=== PATIENT | male | born 1975 | race Caucasian/White ===

== ENCOUNTER 2021-04-07 12:21 | Observation (INO) | payer BC, OTHER ==
[~2021-04-07] VITALS: Ht 180 cm; Wt 90.7 kg
[2021-04-07] MEDS: NITROGLYCERIN 0.4 MG SL TABS BTL 25'S SL PRN ×5 (12:43→23:20)
[2021-04-07] MEDS ORDERED: ASPIRIN 81 MG CHEW (CHILDREN'S ASA) PO ONE (12:45)
[2021-04-07 12:49] LABS: BASOPHILS % (AUTO) 0 % (0-10); EOSINOPHILS % (AUTO) 0 % (0-10); HEMATOCRIT 46 % (40-54); HEMOGLOBIN 15.7 g/dL (13.3-17.7); LYMPHOCYTES # (AUTO) 1.8 X 10^3 (1.0-4.0); LYMPHOCYTES % (AUTO) 25 % (12-44); MEAN CORPUSCULAR HEMOGLOBIN 30 pg (25-34); MEAN CORPUSCULAR HGB CONC 34 g/dL (32-36); MEAN CORPUSCULAR VOLUME 87 fL (80-99); MEAN PLATELET VOLUME 10.1 fL (9.0-12.2); MONOCYTES # (AUTO) 0.6 X 10^3 (0.0-1.0); MONOCYTES % (AUTO) 8 % (0-12); NEUTROPHILS # (AUTO) 4.9 X 10^3 (1.8-7.8); NEUTROPHILS % (AUTO) 67 % (42-75); PLATELET COUNT 188 10^3/uL (130-400); WHITE BLOOD COUNT 7.4 10^3/uL (4.3-11.0)
--- NOTE | 2021-04-07 12:55 | Diagnostic Imaging Report ---
INDICATION: Chest pain. COMPARISON: None. FINDINGS: Single view of the chest demonstrates clear lungs bilaterally. The heart is normal. There is no pneumothorax. Osseous structures are normal. IMPRESSION: Negative chest. Dictated by: Dictated on workstation # [id number]
[2021-04-07 12:59] LABS: ALBUMIN 4.3 GM/DL (3.2-4.5); CHLORIDE 106 MMOL/L (98-107); POTASSIUM 3.9 MMOL/L (3.6-5.0); SODIUM 140 MMOL/L (135-145)
[2021-04-07 13:00] LABS: PROTHROMBIN TIME PATIENT 13.8 SEC (12.2-14.7)
[2021-04-07 13:02] LABS: GLUCOSE 110 MG/DL (70-105)
[2021-04-07 13:03] LABS: CARBON DIOXIDE 21 MMOL/L (21-32)
[2021-04-07 13:04] LABS: BILIRUBIN,TOTAL 0.6 MG/DL (0.1-1.0)
[2021-04-07 13:05] LABS: ALKALINE PHOSPHATASE 67 U/L (40-136)
[2021-04-07 13:06] LABS: GFR ESTIMATED 66
[2021-04-07 13:07] LABS: BUN/CREATININE RATIO 11
[2021-04-07 13:08] LABS: ALANINE AMINOTRANSFERASE 14 U/L (0-55)
--- NOTE | 2021-04-07 13:11 | ED Chest Pain ---
General Chief Complaint: Chest Pain Stated Complaint: CHEST PAIN Nursing Triage Note: PT AMBULATORY TO ER, C/O L SIDED CHEST PAIN/HEAVINESS ONSET A WEEK AGO, WORSE THE PAST 2-3 DAYS, SENT OVER FROM CLINIC, ARRIVES WITH EKG. Source: patient Exam Limitations: no limitations History of Present Illness Date Seen by Provider: Apr 07, 2021 Time Seen by Provider: 12:23 Initial Comments This 45-year-old gentleman presents to the emergency room as referred by [facility] for reasons of chest pain and shortness of breath. He reports having intermittent episodes of chest pain and shortness of breath for a few weeks. Over the last 3 days it has been more consistent. The chest pain is fairly constant but the shortness of breath increases with activity such as taking stairs. He describes the discomfort as a heaviness in the left chest rated as 5 or 6 out of 10. He denies any known history of coronary artery disease. He is treated for hypertension and acid reflux. He denies any prior work-up for cardiopulmonary problems such as stress test or coronary angiography. He takes sucralfate, Protonix, baclofen, and lisinopril. His primary care provider is Dr. Vidal. He denies any tobacco or drug use. He rarely drinks alcohol. He has no family history of coronary artery disease in first-degree relatives. Allergies and Home Medications Allergies Coded Allergies: losartan (Verified Allergy, Severe, Anaphylaxis, 04/07/21) Lip and throat swelling Patient Home Medication List Home Medication List Reviewed: Yes Baclofen (Baclofen) 10 Mg Tablet, 10 MG PO DAILY, (Reported) Entered as Reported by: AJITH FLOWERS on 04/07/211649 Last Action: New Order Lisinopril (Lisinopril) 20 Mg Tablet, 20 MG PO DAILY, (Reported) Entered as Reported by: AJITH FLOWERS on 04/07/211649 Last Action: New Order Pantoprazole Sodium (Pantoprazole Sodium) 20 Mg Tablet.dr, 20 MG PO DAILY, (Reported) Entered as Reported by: AJITH FLOWERS on 04/07/211649 Last Action: New Order Sucralfate (Sucralfate) 1 Gm Tablet, 1 GM PO DAILY, (Reported) Entered as Reported by: AJITH FLOWERS on 04/07/211649 Last Action: New Order Review of Systems Review of Systems Constitutional: no symptoms reported EENTM: No Symptoms Reported Respiratory: See HPI Cardiovascular: See HPI Gastrointestinal: No Symptoms Reported Genitourinary: No Symptoms Reported Musculoskeletal: no symptoms reported Skin: no symptoms reported Psychiatric/Neurological: No Symptoms Reported Endocrine: No Symptoms Reported Hematologic/Lymphatic: No Symptoms Reported Past Dttgvja-Fudeih-Yescpk Hx Patient Social History Tobacco Use?: No Use of E-Cig and/or Vaping dev: No Substance use?: No Alcohol Use?: Yes Alcohol Frequency: Rarely Pt feels they are or have been: No Immunizations Up To Date First/Initial COVID19 Vaccinat: JULY 2020 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 oz. kg; 27.00 BMI Method: General Appearance: No Apparent Distress, WD/WN HEENT: PERRL/EOMI, Normal ENT Inspection Neck: Normal Inspection Respiratory: Chest Non Tender, Lungs Clear, Normal Breath Sounds, No Accessory Muscle Use, No Respiratory Distress Cardiovascular: Regular Rate, Rhythm, No Edema, No Murmur Gastrointestinal: Normal Bowel Sounds, Non Tender, Soft; No Distended Extremity: Normal Inspection, Non Tender, No Calf Tenderness, No Pedal Edema Neurologic/Psychiatric: Alert, Oriented x3, No Motor/Sensory Deficits, Normal Mood/Affect, air filler II-XII Norm as Tested Skin: Normal Color, Warm/Dry Progress/Results/Core Measures Results/Orders Lab Results Laboratory Tests Test 04/07/21 12:36 Range/Units White Blood Count 7.4 4.3-11.0 10^3/uL Red Blood Count 5.26 4.30-5.52 10^6/uL Hemoglobin 15.7 13.3-17.7 g/dL Hematocrit 46 40-54 % Mean Corpuscular Volume 87 80-99 fL Mean Corpuscular Hemoglobin 30 25-34 pg Mean Corpuscular Hemoglobin Concent 34 32-36 g/dL Red Cell Distribution Width 13.6 10.0-14.5 % Platelet Count 188 130-400 10^3/uL Mean Platelet Volume 10.1 9.0-12.2 fL Immature Granulocyte % (Auto) 0 % Neutrophils (%) (Auto) 67 42-75 % Lymphocytes (%) (Auto) 25 12-44 % Monocytes (%) (Auto) 8 0-12 % Eosinophils (%) (Auto) 0 0-10 % Basophils (%) (Auto) 0 0-10 % Neutrophils # (Auto) 4.9 1.8-7.8 X 10^3 Lymphocytes # (Auto) 1.8 1.0-4.0 X 10^3 Monocytes # (Auto) 0.6 0.0-1.0 X 10^3 Eosinophils # (Auto) 0.0 0.0-0.3 10^3/uL Basophils # (Auto) 0.0 0.0-0.1 10^3/uL Immature Granulocyte # (Auto) 0.0 0.0-0.1 10^3/uL Prothrombin Time 13.8 12.2-14.7 SEC INR Comment 1.0 0.8-1.4 Activated Partial Thromboplast Time 27 24-35 SEC D-Dimer 0.29 0.00-0.49 UG/ML Sodium Level 140 135-145 MMOL/L Potassium Level 3.9 3.6-5.0 MMOL/L Chloride Level 106 98-107 MMOL/L Carbon Dioxide Level 21 21-32 MMOL/L Anion Gap 13 5-14 MMOL/L Blood Urea Nitrogen 13 7-18 MG/DL Creatinine 1.20 0.60-1.30 MG/DL Estimat Glomerular Filtration Rate 66 BUN/Creatinine Ratio 11 Glucose Level 110 H 70-105 MG/DL Calcium Level 9.0 8.5-10.1 MG/DL Corrected Calcium 8.8 8.5-10.1 MG/DL Magnesium Level 2.0 1.6-2.4 MG/DL Total Bilirubin 0.6 0.1-1.0 MG/DL Aspartate Amino Transf (AST/SGOT) 16 5-34 U/L Alanine Aminotransferase (ALT/SGPT) 14 0-55 U/L Alkaline Phosphatase 67 40-136 U/L Myoglobin 26.8 10.0-92.0 NG/ML Troponin I < 0.028 <0.028 NG/ML C-Reactive Protein High Sensitivity 0.07 0.00-0.50 MG/DL B-Type Natriuretic Peptide < 10.0 <100.0 PG/ML Total Protein 7.0 6.4-8.2 GM/DL Albumin 4.3 3.2-4.5 GM/DL TSH Prospect Testing 1.04 0.35-4.94 UIU/ML My Orders Orders - AMEYA TODD MD Cbc With Automated Diff (04/07/21 12:37) Magnesium (04/07/21 12:37) Chest 1 View, Ap/Pa Only (04/07/21 12:37) Ekg Tracing (04/07/21 12:37) Comprehensive Metabolic Panel (04/07/21 12:37) Myoglobin Serum (04/07/21 12:37) Protime With Inr (04/07/21 12:37) Partial Thromboplastin Time (04/07/21 12:37) O2 (04/07/21 12:37) Monitor-Rhythm Ecg Trace Only (04/07/21 12:37) Lipid Panel (04/08/21 06:00) Ed Iv/Invasive Line Start (04/07/21 12:37) Nitroglycerin 0.4 Mg Btl 25's (Nitrostat (04/07/21 12:45) Aspirin Chewable Tablet (Baby Aspirin Ch (04/07/21 12:45) Troponin I (04/07/21 12:36) BNP (04/07/21 13:01) Fibrin Degradation Products (04/07/21 13:49) Ondansetron Injection (Zofran Injectio (04/07/21 14:00) Lidocaine 2% Viscous 15 Ml (Xylocaine Vi (04/07/21 14:00) Antacid Suspension (Mylanta Suspension (04/07/21 14:00) Famotidine Injection (Pepcid Injection) (04/07/21 13:50) Hs C Reactive Protein (04/07/21 14:51) Thyroid Analyzer (04/07/21 14:51) Erythrocyte Sedimentation Rate (04/07/21 14:51) Echo W Doppler/Color Flow (04/07/21 14:51) Morphine Injection (Morphine Injection (04/07/21 14:51) Medications Given in ED Current Medications Medications Dose Ordered Sig/Bing Route Start Time Stop Time Status Last Admin Dose Admin Al Hydrox/Mg Hydrox/Simethicone 30 ml ONCE ONCE PO 04/07/21 14:00 04/07/21 14:01 DC 04/07/21 13:59 30 ML Aspirin 324 mg ONCE ONCE PO 04/07/21 12:45 04/07/21 12:46 DC 04/07/21 12:42 324 MG Lidocaine HCl 15 ml ONCE ONCE PO 04/07/21 14:00 04/07/21 14:01 DC 04/07/21 13:59 15 ML Nitroglycerin 0.4 mg UD PRN SL 04/07/21 12:45 04/07/21 16:33 DC 04/07/21 12:49 0.4 MG Ondansetron HCl 4 mg ONCE ONCE IVP 04/07/21 14:00 04/07/21 14:01 DC 04/07/21 13:56 4 MG Vital Signs/I&O 04/07/21 04/07/21 04/07/21 04/07/21 12:25 12:47 12:55 13:01 Temp 36.8 Pulse 74 93 91 Resp 20 18 18 B/P (MAP) 166/98 (120) 144/108 128/78 Pulse Ox 100 95 95 O2 Delivery Room Air Room Air Room Air Room Air FiO2 100 04/07/21 04/07/21 04/07/21 04/07/21 13:17 13:32 13:50 14:24 Pulse 81 75 84 75 Resp 18 18 20 B/P (MAP) 125/78 120/86 134/76 137/67 Pulse Ox 96 96 97 96 O2 Delivery Room Air Room Air Room Air Room Air 04/07/21 14:53 Pulse 70 Resp 20 B/P (MAP) 144/98 Pulse Ox 97 Blood Pressure Mean: 95 Progress Progress Note #1: Time: 13:11 Progress Note EKG demonstrated no STEMI. Aspirin 324 mg was administered. Nitroglycerin x2 almost completely alleviated his pain. Progress Note #2: Time: 13:57 Progress Note Work-up was unremarkable. Pain is now rebounding. Case was discussed with Dr. Miller. Because of COVID-19 infection in December, we are checking a D-dimer. We are also trialing a GI cocktail for treatment of his pain at this time due to his history of GERD. Pepcid and Zofran are also being administered. I plan to notify Dr. Miller of the results of these interventions. Progress Note #3: Time: 14:24 Progress Note D-dimer was negative. GI cocktail may have improved his pain a little bit. He now reports minimal pain. I discussed again with Dr. Miller. He suggested o ffering some morphine. Since patient's pain is minimal, he declines. Dr. Miller plans to present to the ER to discuss options with the patient. Progress Note #4: Time: 15:40 Progress Note 2D echocardiogram was completed in the ER. Submarine Operator read is pending but there were no gross abnormalities reported by the ophthalmology technician. Patient added to his history that he has been having some lightheaded or dizzy episodes associated with the chest pain and shortness of breath. His significant other reports he really does not tolerate much exertion without becoming quite short of breath. He denies wheezing. On reexamination I auscultated during forced expiration. There was perhaps a slight prolongation of expiratory phase but no wheezing induced. While in the room I observed multiple runs of bigeminy, some sustained for approximately a minute or so. I am also ordering an A1c as patient significant other reports he has had some borderline blood sugars in the past. Initial ECG Impression Date: Apr 07, 2021 Initial ECG Impression Time: 12:30 Initial ECG Rate: 75 Initial ECG Rhythm: Normal Sinus Comment Sinus rhythm with artifact. No ST elevation or depression. No abnormal intervals or axis deviation. Diagnostic Imaging Diagonstic Imaging: Xray Plain Films/CT/US/NM/MRI: chest Comments Chest x-ray viewed by me and report reviewed. See report below: NAME: [facility] REC#: [id number] PT STATUS: REG ER : 1975 PHYSICIAN: AMEYA TODD MD ADMIT DATE: 04/07/21/ER Draft Date of Exam:04/07/21 CHEST 1 VIEW, AP/PA ONLY INDICATION: Chest pain. COMPARISON: None. FINDINGS: Single view of the chest demonstrates clear lungs bilaterally. The heart is normal. There is no pneumothorax. Osseous structures are normal. IMPRESSION: Negative chest. Dictated on workstation # [id number] Dict: 04/07/21 1253 Trans: 04/07/21 1255 [id number] [id number] Interpreted by: ELIZABETH MORENO Communication (Admissions) Time/Spoke to Admitting Phy: 15:15 Dr. Dumont Time/Spoke to Consulting Phy: 15:00 Dr. Miller Impression Primary Impression: Chest pain Qualified Codes: R07.9 - Chest pain, unspecified Additional Impressions: Shortness of breath Bigeminy Disposition: ADMITTED INPATIENT Condition: Stable Admissions Decision to Admit Reason: Admit from ER (General) Decision to Admit/Date: Apr 07, 2021 Time/Decision to Admit Time: 15:00 Departure-Patient Inst. Referrals: NO,LOCAL PHYSICIAN (PCP/Family) Primary Care Physician AMEYA TODD MD Apr 07, 2021 13:11
[2021-04-07] MEDS ORDERED: FAMOTIDINE 20MG/2ML IV (PEPCID) IV STA (13:50)
[2021-04-07] MEDS ORDERED: ANTACID SUSP 30 ML UDC (MYLANTA) PO ONE (14:00)
[2021-04-07] MEDS ORDERED: LIDOCAINE 2% VISCOUS 15 ML UDC PO ONE (14:00)
[2021-04-07] MEDS ORDERED: ONDANSETRON 4 MG/2 ML (SDV) Z0FRAN IVP ONE (14:00)
[2021-04-07] MEDS ORDERED: morphine INJ 10 MG/ML 1ML (SYR OR VIAL) IVP STA (14:51)
--- NOTE | 2021-04-07 14:59 | Consultation-Cardiology ---
HPI-Cardiology Cardiology Consultation Date of Consultation 04/07/21 Date of Admission Time Seen by Provider: 14:55 Indication: Chest pain HPI 45 years old gentleman with no significant past medical history, suffered from COVID-19 infection in December 2020, was short of breath and weak and had fever been recovered but continued to have recurrent chest pain and generalized fatigu e. He came into the emergency room due to recurrent chest pain for the past week which has been worsening significantly are described as dull achiness in the left upper side of her chest radiating to the left shoulder and left arm. No shortness of breath but has been having fatigue and no energy. No syncope or near syncopal episodes. Home Medications & Allergies Allergies: Coded Allergies: No Known Drug Allergies (Unverified , 04/07/21) Home Medication List Reviewed: Yes XOF-Ccfdcg-Dutvsr Hx Patient Social History Marital Status: Employed/Student: employed Have you traveled recently?: No Alcohol Use?: Yes Past Medical History No known past medical history Family Medical History Family Medical Hx Noncontributory Review of Systems-General Review of Systems Constitutional: no symptoms reported, malaise, weakness EENTM: see HPI, no symptoms reported Respiratory: see HPI, cough; No dyspnea on exertion, No hemoptysis, No orthopnea, No phlegm, No short of breath, No stridor, No wheezing, No other Cardiovascular: see HPI, chest pain; No edema, No Hx of Intervention, No palpitations, No syncope, No vascular heart diseas, No other Gastrointestinal: no symptoms reported, see HPI Genitourinary: no symptoms reported, see HPI Musculoskeletal: no symptoms reported, see HPI Skin: no symptoms reported, see HPI Psychiatric/Neurological: No Symptoms Reported, See HPI Reviewed Test Results Reviewed Test Results Lab Laboratory Tests Test 04/07/21 12:36 Range/Units White Blood Count 7.4 4.3-11.0 10^3/uL Red Blood Count 5.26 4.30-5.52 10^6/uL Hemoglobin 15.7 13.3-17.7 g/dL Hematocrit 46 40-54 % Mean Corpuscular Volume 87 80-99 fL Mean Corpuscular Hemoglobin 30 25-34 pg Mean Corpuscular Hemoglobin Concent 34 32-36 g/dL Red Cell Distribution Width 13.6 10.0-14.5 % Platelet Count 188 130-400 10^3/uL Mean Platelet Volume 10.1 9.0-12.2 fL Immature Granulocyte % (Auto) 0 % Neutrophils (%) (Auto) 67 42-75 % Lymphocytes (%) (Auto) 25 12-44 % Monocytes (%) (Auto) 8 0-12 % Eosinophils (%) (Auto) 0 0-10 % Basophils (%) (Auto) 0 0-10 % Neutrophils # (Auto) 4.9 1.8-7.8 X 10^3 Lymphocytes # (Auto) 1.8 1.0-4.0 X 10^3 Monocytes # (Auto) 0.6 0.0-1.0 X 10^3 Eosinophils # (Auto) 0.0 0.0-0.3 10^3/uL Basophils # (Auto) 0.0 0.0-0.1 10^3/uL Immature Granulocyte # (Auto) 0.0 0.0-0.1 10^3/uL Prothrombin Time 13.8 12.2-14.7 SEC INR Comment 1.0 0.8-1.4 Activated Partial Thromboplast Time 27 24-35 SEC D-Dimer 0.29 0.00-0.49 UG/ML Sodium Level 140 135-145 MMOL/L Potassium Level 3.9 3.6-5.0 MMOL/L Chloride Level 106 98-107 MMOL/L Carbon Dioxide Level 21 21-32 MMOL/L Anion Gap 13 5-14 MMOL/L Blood Urea Nitrogen 13 7-18 MG/DL Creatinine 1.20 0.60-1.30 MG/DL Estimat Glomerular Filtration Rate 66 BUN/Creatinine Ratio 11 Glucose Level 110 H 70-105 MG/DL Calcium Level 9.0 8.5-10.1 MG/DL Corrected Calcium 8.8 8.5-10.1 MG/DL Magnesium Level 2.0 1.6-2.4 MG/DL Total Bilirubin 0.6 0.1-1.0 MG/DL Aspartate Amino Transf (AST/SGOT) 16 5-34 U/L Alanine Aminotransferase (ALT/SGPT) 14 0-55 U/L Alkaline Phosphatase 67 40-136 U/L Myoglobin 26.8 10.0-92.0 NG/ML Troponin I < 0.028 <0.028 NG/ML B-Type Natriuretic Peptide < 10.0 <100.0 PG/ML Total Protein 7.0 6.4-8.2 GM/DL Albumin 4.3 3.2-4.5 GM/DL Physical Exam Physical Exam Vital Signs Vital Signs - First Documented 04/07/21 04/07/21 12:25 12:47 Temp 36.8 Pulse 74 Resp 20 B/P (MAP) 166/98 (120) Pulse Ox 100 O2 Delivery Room Air FiO2 100 Capillary Refill : Height, Weight, BMI Height: '" Weight: lbs. oz. kg; 27.00 BMI Method: General Appearance: No Apparent Distress, WD/WN Eyes: Bilateral Eye Normal Inspection, Bilateral Eye PERRL, Bilateral Eye EOMI HEENT: PERRL/EOMI, Normal ENT Inspection Neck: Normal Inspection Respiratory: Chest Non Tender, Lungs Clear, Normal Breath Sounds, No Accessory Muscle Use, No Respiratory Distress Cardiovascular: Regular Rate, Rhythm, No Edema, No Murmur Gastrointestinal: Normal Bowel Sounds, Non Tender, Soft; No Distended Back: Normal Inspection, No CVA Tenderness, No Vertebral Tenderness Extremity: Normal Inspection, Non Tender, No Calf Tenderness, No Pedal Edema Neurologic/Psychiatric: Alert, Oriented x3, No Motor/Sensory Deficits, Normal Mood/Affect, surgical services tech II-XII Norm as Tested Skin: Normal Color, Warm/Dry Lymphatic: No Adenopathy A/P-Cardiology Admission Diagnosis Chest pain Left arm pain Post COVID-19 infection Assessment/Plan Chest pain, nonspecific etiology, appeared to have mildly enlarged lymph node in the left anterior axillary area, mild tenderness in that area. EKG did not show any acute abnormality, cardiac enzymes were negative, D-dimer is negative. Will evaluate ESR, CRP, TSH and 2D echo. Monitor, start on aspirin and Lovenox. Left arm pain, associated with chest pain. Continue to monitor Gastroesophageal reflux disease, reported mild improvement with GI cocktail, starting PPI Status post recent COVID-19 infection, history of vaccination in July 2020. Recovering slowly, questionable yoel braden Clinical Quality Measures AMI/AHF: ASA po Prior to arrival: FLOR Rai MD Apr 07, 2021 14:59
[2021-04-07 16:22] LABS: TSH (THYROID ANALYZER) 1.04 UIU/ML (0.35-4.94)
[2021-04-07] MEDS ORDERED: ONDANSETRON 4 MG/2 ML (SDV) Z0FRAN IV PRN (16:45)
[2021-04-07] MEDS ORDERED: BACLOFEN 10 MG (LIORESAL) TAB PO PRN (16:45)
[2021-04-07] MEDS ORDERED: morphine INJ 4 MG/ML 1 ML (VIAL/SYRINGE) IV PRN (16:45)
[2021-04-07] MEDS ORDERED: SUCR1TAB PO (16:50)
[2021-04-07] MEDS ORDERED: PANT20TA18 PO (16:50)
[2021-04-07] MEDS ORDERED: LISI20TA26 PO (16:50)
[2021-04-07] MEDS ORDERED: BACL10TA PO (16:50)
[2021-04-07] MEDS ORDERED: ENOXAPARIN 100 MG/1 ML (LOVENOX) SYR SC SCH (17:00)
[2021-04-07] MEDS ORDERED: FLU QUADRIvalent (3YOA+) 60 mcg/0.5 ml 2021-22(AFLURIA) IM ONE (18:15)
[2021-04-07] MEDS: SUCRALFATE 1 GM (CARAFATE) TAB PO SCH (19:56)
[2021-04-07 20:00] VITALS: BP 130/84
[2021-04-07] MEDS ORDERED: NS IV 1000 ML 1,000 ML ONE (23:07)
[2021-04-07] MEDS ORDERED: NS IV 1000 ML 1,000 ML IV SCH (23:30)
[2021-04-08] VITALS: BP 139/97
[2021-04-08 00:46] LABS: TRIGLYCERIDES 101 MG/DL (<150); VLDL CHOLESTEROL 20 MG/DL (5-40)
[2021-04-08 00:51] LABS: CHOLESTEROL 115 MG/DL (< 200); HDL CHOLESTEROL 41 MG/DL (40-60)
[2021-04-08 04:00] VITALS: BP 102/66
[2021-04-08] MEDS: SUCRALFATE 1 GM (CARAFATE) TAB PO SCH ×2 (05:06→12:30)
[2021-04-08] MEDS ORDERED: ENOXAPARIN 100 MG/1 ML (LOVENOX) SYR SC SCH (06:00)
[2021-04-08 07:47] VITALS: BP 111/83
--- NOTE | 2021-04-08 08:44 | Cardiology Progress Note ---
Subjective Date Seen by Provider: Apr 08, 2021 Time Seen by Provider: 08:43 Subjective/Events-last exam Patient is laying down in bed, had another episode of chest pain last night, reporting chest pain on and off this morning. Review of Systems General: No Chills, No Night Sweats, No Fatigue, No Malaise, No Appetite, No Other HEENT: No Head Aches, No Visual Changes, No Eye Pain, No Ear Pain, No Dysphasia, No Sinus Congestion, No Post Nasal Drip, No Sore Throat, No Other Pulmonary: No Dyspnea, No Cough, No Pleuritic Chest Pain, No Other Cardiovascular: No: Chest Pain, Palpitations, Orthopnea, Paroxysmal Noc. Dyspnea, Edema, Lt Headedness, Other Objective-Cardiology Exam Last Set of Vital Signs Vital Signs 04/07/21 04/08/21 12:47 07:47 Temp 37.4 Pulse 63 Resp 22 B/P (MAP) 111/83 (92) Pulse Ox 98 O2 Delivery Room Air FiO2 100 I&O Intake and Output 04/08/21 00:00 Intake Total 400 ml Balance 400 ml Intake Oral 400 ml Daily Weight Change No General: Alert, Oriented X3, Cooperative HEENT: Atraumatic, PERRLA Neck: Supple, No JVD, No Thyromegaly Lungs: Clear to Auscultation, Normal Air Movement Heart: Regular Rate, Normal S1, Normal S2, No Murmurs Abdomen: Normal Bowel Sounds, Soft, No Tenderness, No Hepatosplenomegaly, No Masses Extremities: No Clubbing, No Cyanosis, No Edema, Normal Pulses, No Tenderness/Swelling Skin: No Rashes, No Breakdown, No Significant Lesion Neuro: Normal Gait, Normal Speech, Strength at 5/5 X4 Ext, Normal Tone, Sensation Intact Psych/Mental Status: Mental Status NL, Mood NL Results Lab Laboratory Tests 04/07/21 12:36 A/P-Cardiology Admission Diagnosis Chest pain Left arm pain Post COVID-19 infection Assessment/Plan Chest pain, resembling angina, has been having waxing and waning chest pain. EKG showed minimal nondiagnostic changes with poor R wave progression in the anterior leads Cardiac enzymes were negative Patient has been having chest pain with exertion, anxious about his situation, we discussed the possibility of doing stress test as an outpatient versus cardiac catheterization. Patient preferred a cardiac catheterization due to the need to travel soon and having significant episodes of chest pain on and off with exertion recently. Transient episode of ventricular bigeminy, I am starting low-dose beta-blockers and evaluate tolerance and response Gastroesophageal reflux disease, reported mild improvement with GI cocktail, starting PPI Status post recent COVID-19 infection, history of vaccination in July 2020. Recovering slowly, questionable long FLOR Ulloa MD Apr 08, 2021 08:44
--- NOTE | 2021-04-08 08:45 | Conscious Sedation/ASA ---
Conscious Sedation Pre-Proced Time 08:44 ASA Score 3 For ASA 3 and 4: Consider anesthesia and medical clearance. Also, for patients with a history of failed moderate sedation consider anesthesia. Airway Lungs Heart ASA score ASA 1: a normal healthy patient ASA 2: a patient with a mild systemic disease (mid diabetes, controlled hypertension, obesity x ASA 3: a patient with a severe systemic disease that limits activity (angina, COPD, prior Myocardial infarction) ASA 4: a patient with an incapacitating disease that is a constant threat to life (CHF, renal failure) ASA 5: a moribund patient not expected to survive 24 hrs. (ruptured aneurysm) ASA 6: a declared brain- patient whose organs are being harvested. For emergent operations, add the letter E after the classification Mallampati Classification Grade 3 Sedation Plan Analgesia, Amnesia, Plan communicated to team members, Discussed options with patient/fam, Discussed risks with patient/fam The patient is an appropriate candidate to undergo the planned procedure, sedation, and anesthesia. The patient immediately re-assessed prior to indication. FLOR SOSA MD Apr 08, 2021 08:45
[2021-04-08] MEDS ORDERED: ASPIRIN E.C. 81 MG (ECOTRIN) TAB PO SCH (09:00)
[2021-04-08] MEDS ORDERED: PANTOPRAZOLE 40 MG (PROTONIX) TAB PO SCH (09:00)
[2021-04-08] MEDS ORDERED: lisINopril 20 MG (PRINIVIL) TABLET PO SCH (09:00)
[2021-04-08] MEDS ORDERED: VERAPAMIL 5 MG/2 ML (CALAN) VIAL IV ONE (09:09)
[2021-04-08] MEDS ORDERED: MIDAZOLAM 5 MG/5 ML (VERSED) VIAL ONE (09:09)
[2021-04-08] MEDS ORDERED: fentaNYL INJ 100 MCG/2 ML AMP ONE (09:09)
[2021-04-08] MEDS ORDERED: HEParin 1000 UNIT/ML (10ML VIAL) FOR BOLUS ONE (09:09)
[2021-04-08] MEDS ORDERED: LIDOCAINE 1% INJ 20 ML 20 ML VIAL ONE (09:09)
[2021-04-08] MEDS ORDERED: HEParin (CATH LAB) 2,000 ML IV ONE (09:10)
[2021-04-08] MEDS ORDERED: NS IV 1000 ML 1,000 ML ONE (09:10)
[2021-04-08] MEDS ORDERED: NITRO DRIP 25000 MCG/D5W 250 ML IV ONE (09:10)
[2021-04-08] MEDS ORDERED: NS IV 1000 ML 1,000 ML IV SCH (10:00)
[2021-04-08] MEDS ORDERED: METO-351 PO (10:02)
--- NOTE | 2021-04-08 10:02 | Discharge Inst-Post CATH ---
Discharge Inst-CATH/EP Problems Reviewed?: Yes Post Cardiac Cath/EP D/C Inst Follow Up/Plan Appointment with Dr. Miller's office in 2 to 4 weeks <b>CARDIAC CATH/EP PROCEDURE DISCHARGE INSTRUCTIONS</b> ACTIVITY * Go Home directly and rest. * Limit activity of the leg (or wrist if it was used) for 7 days including aer obics, swimming, jogging, bicycling, etc. * Restrict stair-climbing for 7 days if possible, if not, climb up with your non-cath leg, then bring together on the same step. * Avoid lifting, pushing, pulling or excessive movement of the affected extremi ty for 7 days. * Customary sexual activity may be resumed after 2 days-use caution not to use a position that strains or causes pain to the affected extremity. * No driving for 24 hours. * NO SMOKING. * Avoid straining for bowel movements for 7 days. * Gentle walking on level ground is allowed. * Returning to work will depend on the type of procedure and the results. Your doctor will discuss this with you. CALL YOUR DOCTOR FOR ANY OF THE FOLLOWING: *If bleeding from the puncture site occurs- Apply gentle pressure to site with clean cloth and call your doctor or EMS. * If a knot or lump forms under the skin, increases in size, or causes pain. * If bruising appears to be worsening or moving further down your leg instead of disappearing. * Temperature above 101 F. CARE OF YOUR GROIN INCISION; * Bruising or purple discoloration of the skin near the puncture site is common. * You may shower only, no bathtub bathing for 5 days. Be careful to avoid slipping as your leg may feel stiff. * If a closure device was used on your femoral artery, please see the attached guide regarding care of the device and your leg. * Leave dressing on FOR 24 hours. CARE OF YOUR WRIST INCISION; * Bruising or purple discoloration of the skin near the puncture site is common. * You may shower. * DO NOT submerge wrist. * Leave dressing on FOR 24 hours. FLOR MILLER MD Apr 08, 2021 10:02
--- NOTE | 2021-04-08 10:11 | Cardiac Cath Report ---
Cardiac Cath Report Physician (s)/Lithoduplicator Operator (s) Physician FLOR SOSA MD Pre-Procedure Diagnosis Pre-Procedure Diagnosis: Chest pain Post-Procedure Note Procedure Start Date: Apr 08, 2021 Name of Procedure: Left heart catheterization Aortic arch angiogram Findings/Procedure Note PROCEDURE NOTE: 45 years old gentleman admitted with recurrent chest pain, continue to have recurrent chest pain left-sided radiating to the arms associated with exertion. Having significant discomfort and concerned about his recurrent pain. Cardiac catheterization was advised after discussing the possibility of stress test and patient reported that [place] is leaving the [place] and he will have difficulty having a stress test done. After explaining the procedure to the patient, all pros and cons were explained, all questions were answered. The patient signed the consent and then he was placed on the cardiac catheterization laboratory. Groin was prepped SL fashion local anesthesia was used. Sheath placed in the right radial artery, [place] catheter advanced to the left ventricular cavity, pressure was measured, pullback LV to aorta was done. Engaged the right and left coronary system was done. Angiogram was done then it was pulled to the aortic arch I decided to evaluate the aortic arch due to the persistent chest pain in the upper chest and the difficulty advancing the catheter through the aortic arch. At the end of the procedure the sheath was removed. Vascular band deployed FINDINGS: Hemodynamics LV 112/25, end-diastolic pressure of 25 Aorta 110/79 mean of 94 ANATOMY: Left Main is free of obstructive disease Left Anterior Descending is slightly tortuous with mild disease no obstructive disease Left Circumflex has no obstructive disease Right Coronary Artery is dominant artery with mild tortuosity, no obstructive disease LV Gram was not done, pressure was measured Aorta evaluation done with aortic arch angiogram showing normal aortic arch, no dissection, no aneurysm, normal origin of the brachiocephalic artery, left carotid and left subclavian arteries. CONCLUSION: 1. Mild tortuosity in the left system with no significant obstructive disease 2. Mildly elevated left ventricular end-diastolic pressure probably due to hypertension 3. Normal aortic arch and great vessels of the neck DISCUSSION AND RECOMMENDATION: Patient has mild coronary artery disease nonobstructive disease does not explain his recurrent chest pain. He was having transient episode of ventricular bigeminy, I started him on low-dose beta-blockers. We will follow up as an outpatient Anesthesia Type: Conscious Sedation Estimated blood loss (mL): 5 ml Contrast Amount: 28 ml Total Radiation Dose: 231 mGy Post-Procedure Diagnosis Post-operative diagnosis: Chest pain Hypertension PVCs FLOR SOSA MD Apr 08, 2021 10:11
[2021-04-08 11:22] VITALS: BP 121/81
[2021-04-08 14:00] VITALS: BP 121/81
--- NOTE | 2021-04-08 20:57 | Discharge Summary ---
Discharge Summary Hospital Course Problems/Dx: (1) Chest pain Status: Acute Qualifiers: Qualified Codes: R07.9 - Chest pain, unspecified Hospital Course Date of Admission: Apr 07, 2021 at 15:16 Admission Diagnosis : Chest pain Family Physician/Provider: DreaLocal Physician Date of Discharge: 04/08/21 Discharge Diagnosis: Chest pain Hospital Course: Pérez Koehler is a 45 year old male who was admitted with chest pain. Cardiology was consulted and assisted with his care. His troponin remained normal, but due to his symptoms he underwent a left heart catheterization which showed no evidence of obstructive coronary artery disease. His labs were unrevealing for another cause of his symptoms. He reported improvement with nitroglycerin and with the GI cocktail. He reports having had an EGD as an outpatient which showed no cause for his symptoms. He was recommended to follow up with his PCP. He should also consider GI referral for further evaluation. His symptoms resolved and he was discharged home in stable condition. Labs and Pending Lab Test: Laboratory Tests 04/08/21 00:15: Troponin I < 0.028, Triglycerides Level 101, Cholesterol Level 115, LDL Cholesterol Direct 68, VLDL Cholesterol 20, HDL Cholesterol 41 Home Meds Active Toprol Xl (Metoprolol Succinate) 25 Mg Tab.er.24h 25 Mg PO DAILY Reported Sucralfate 1 Gm Tablet 1 Gm PO DAILY Pantoprazole Sodium 20 Mg Tablet.dr 20 Mg PO DAILY Baclofen 10 Mg Tablet 10 Mg PO DAILY Lisinopril 20 Mg Tablet 20 Mg PO DAILY Assessment/Pt Instructions Take medications as prescribed. Follow up with your PCP. Return with worsening symptoms. Discharge Planning: <30 minutes discharge planning Discharge Instructions Discharge Diet: No Restrictions Activity as Tolerated: Yes Consultations Cardiology Discharge Physical Examination Vital Signs Vital Signs Date Time Temp Pulse Resp B/P (MAP) Pulse Ox O2 Delivery O2 Flow Rate FiO2 04/08/21 14:00 36.6 82 14 121/81 96 Room Air 100 General Appearance: No Apparent Distress, WD/WN HEENT: PERRL/EOMI, Pharynx Normal Respiratory: Lungs Clear, Normal Breath Sounds, No Respiratory Distress Cardiovascular: Regular Rate, Rhythm, No Edema, No Murmur Gastrointestinal: Normal Bowel Sounds, Non Tender, Soft Extremity: Normal Inspection, Non Tender, No Pedal Edema Skin: Normal Color, Warm/Dry Neurologic/Psychiatric: Alert, Oriented x3, No Motor/Sensory Deficits, Normal Mood/Affect Allergies: Coded Allergies: losartan (Verified Allergy, Severe, Anaphylaxis, 04/07/21) Lip and throat swelling Copy Copies To 1: DEVON BIRD DO Discharge Summary Date of Admission Apr 07, 2021 at 15:16 Date of Discharge Apr 08, 2021 at 14:05 Discharge Date: Apr 08, 2021 Discharge Time: 1230 Admission Diagnosis Chest pain Consults/Procedures Consulations Cardiology Procedures Left heart catheterization Discharge Diagnosis (1) Chest pain Status: Acute Qualifiers: Qualified Codes: R07.9 - Chest pain, unspecified Clinical Quality Measures AMI/AHF: ASA po Prior to arrival: GIANNA Serrano MD Apr 08, 2021 20:57
== END 2021-04-08 14:05 | disposition home or self-care (01) ==
LOC: ER 12:25 → CSD 15:16
PROVIDERS: ADMIT Internal Medicine; ATTEND Internal Medicine
DX: R07.89 Other chest pain (principal); R06.02 Shortness of breath; U09.9 Post COVID-19 condition, unspecified; I10 Essential (primary) hypertension; K21.9 Gastro-esophageal reflux disease without esophagitis; I25.2 Old myocardial infarction; I49.3 Ventricular premature depolarization; I44.5 Left posterior fascicular block; Z79.899 Other long term (current) drug therapy
CPT/HCPCS: 36221; 36415; 71045; 80053; 80061; 83036; 83735; 83874; 83880; 84443; 84484; 85025; 85379; 85610; 85652; 85730; 86141; 93005; 93041; 93306; 93458; 96374; 96375

== ENCOUNTER 2021-06-15 05:38 | Outpatient (CLI) | payer BC ==
[~2021-06-15] VITALS: Ht 180 cm; Wt 91.0 kg
[~2021-06-15 05:38] MED LIST: BACL10TA PO; LISI20TA26 PO; METO-351 PO; PANT20TA18 PO; SUCR1TAB PO
== END 2021-06-15 14:32 | disposition home or self-care (01) ==
LOC: PREOP 05:38
PROVIDERS: ATTEND Surgery
DX: Z01.818 Encounter for other preprocedural examination (principal)

== ENCOUNTER 2021-06-22 08:55 | Day surgery (SDC) | payer BC ==
[~2021-06-22] VITALS: Ht 180.3 cm; Wt 97.1 kg
[2021-06-22] MEDS ORDERED: HURRICAINE EXT TUBE (BENZOCAINE) ONE (08:58)
[2021-06-22] MEDS ORDERED: LACTATED RINGERS 1,000 ML IV ONE (09:00)
[2021-06-22] MEDS ORDERED: LACTATED RINGERS 1,000 ML IV STA (09:02)
[2021-06-22 09:05] VITALS: BP 136/97
[2021-06-22] MEDS ORDERED: PROPOFOL INJECTION 50 ML IV ONE (09:13)
[2021-06-22] MEDS ORDERED: MIDAZOLAM 2 MG/2 ML (VERSED) VIAL ONE (09:13)
[2021-06-22] MEDS ORDERED: HURRICAINE EXT TUBE (BENZOCAINE) XX PRN (09:15)
--- NOTE | 2021-06-22 09:19 | Progress Note-Pre Operative ---
Pre-Operative Progress Note H&P Reviewed The H&P was reviewed, patient examined and no changes noted. Date Seen by Provider: Jun 22, 2021 Time Seen by Provider: 09:19 Date H&P Reviewed: Jun 22, 2021 Time H&P Reviewed: 09:19 Pre-Operative Diagnosis: BLOOD IN STOOL, GERD JAMES HERRERA DO Jun 22, 2021 09:19
[2021-06-22 09:50] VITALS: BP 116/86
[2021-06-22 09:55] VITALS: BP 112/82
[2021-06-22 10:00] VITALS: BP 115/68
[2021-06-22 10:20] VITALS: BP 136/99
[2021-06-22 10:25] VITALS: BP 136/99
--- NOTE | 2021-06-22 12:20 | Anesthesia-General Post-Op ---
MAC Patient Condition Mental Status/LOC: Same as Preop Cardiovascular: Satisfactory Nausea/Vomiting: Absent Respiratory: Satisfactory Pain: Controlled Complications: Absent Post Op Complications Complications None Follow Up Care/Instructions Patient Instructions None needed. Anesthesiology Discharge Order Discharge Order Patient was doing well after the procedure, no complaints, stable vital signs, no apparent adverse anesthesia problems. RYAN OLIVARES DO Jun 22, 2021 12:20
--- NOTE | 2021-06-22 13:52 | Discharge Inst-Simple/Standard ---
Discharge Inst-Standard Patient Instructions/Follow Up Plan of Care/Instructions/FU: 2 weeks Jesse Activity as Tolerated: Yes Discharge Diet: Regular Diet (high fiber) JAMES HERRERA DO Jun 22, 2021 13:51
--- NOTE | 2021-06-22 13:56 | Progress Note-Post Operative ---
Post-Operative Progess Note Surgeon (s)/Airplane Fueler (s) Surgeon JAMES HERRERA DO Airplane Fueler: na Pre-Operative Diagnosis BLOOD IN STOOL, GERD Post-Operative Diagnosis Reflux esophagitis, small hiatal hernia, diverticulosis, posterior fissure, rectal polyp Procedure & Operative Findings Date of Procedure 06/22/21 Procedure Performed/Findings egd c biopsies, colonoscopy c cold biopsy polypectomy rectum Anesthesia Type per mda Estimated Blood Loss Estimated blood loss (mL): none Specimens/Packing Specimens Removed antrum, ge, rectal polyp JAMES HERRERA DO Jun 22, 2021 13:56
--- NOTE | 2021-06-22 19:17 | OPERATIVE REPORT ---
DATE OF SERVICE: 06/22/2021 PREOPERATIVE DIAGNOSES: Gastroesophageal reflux disease, blood in the stool. POSTOPERATIVE DIAGNOSES: Small hiatal hernia, reflux esophagitis, posterior anal fissure, diverticulosis, rectal polyp. PROCEDURE: EGD with biopsies, colonoscopy with cold polypectomy of rectal polyp. SURGEON: James Molina DO ANESTHESIA: Per MDA. ESTIMATED BLOOD LOSS: None. COMPLICATIONS: None. INDICATIONS: The patient is a 46-year-old male who has been having blood in the stools and reflux. He understands risks and benefits and wishes to proceed. Consent was signed in the chart. DESCRIPTION OF PROCEDURE: The patient was taken to the endoscopy suite, placed in the left lateral recumbent position. Timeout was performed. Scope was inserted in mouth, down the esophagus, stomach and into the duodenum without difficulty. There were no polyps, masses or ulcerations within the duodenum. Scope was slowly retracted back to stomach where it was further insufflated. No polyps, masses or ulcerations within the stomach. Biopsy of the antrum was obtained. Scope was retroflexed, noting a very small hiatal hernia, no other pathology. Scope was returned to its normal position, slowly withdrawn to distal esophagus, changes of some reflux esophagitis present. Biopsy of the GE junction was obtained. Scope was then slowly retracted back to completely remove, noting no other pathology. Digital rectal exam was performed noting posterior anal fissure. No palpable polyps, masses or ulcerations. Some slight hemorrhoidal disease. Scope was inserted in the rectum and advanced all the way to cecum with minimal difficulty. Prep was adequate with irrigation and suction. Scope was then slowly retracted back. No polyps, masses or ulcerations within the cecum, ascending, transverse, descending and sigmoid colon. Throughout the colon, minimal amount of diverticulosis was present. In the rectum, a small polyp was present, which cold biopsy polypectomy was performed. Scope was retroflexed, noting a small again hemorrhoidal disease. No other pathology noted. Scope was returned to its normal position, slowly withdrawn until completely removed. The patient tolerated the procedure well without any complications, taken to recovery room in stable condition. RECOMMENDATIONS: The patient to continue on current medications. We would recommend high fiber diet, which would help with fissure and with the diverticulosis. We would also recommend keeping the stool soft if needed using a stool softener. I will have him follow up in 2 weeks to discuss pathology results and see how his symptoms are doing. If not controlled or if fissure not healing, we would also consider diltiazem cream. The patient will need repeat colonoscopy in 5 years due to polyp. Any issues before that would be seen at that time. Job ID: [id number] DocumentID: [id number] Dictated Date: 06/22/2021 14:00:30 Tax Attorney Date: 06/22/2021 19:16:12 Dictated By: JAMES MOLINA DO
== END 2021-06-22 10:25 | disposition home or self-care (01) ==
LOC: ENDO 08:55
PROVIDERS: ATTEND Surgery
DX: K21.00 Gastro-esophageal reflux disease with esophagitis, without bleeding (principal); K44.9 Diaphragmatic hernia without obstruction or gangrene; K60.2 Anal fissure, unspecified; K57.30 Diverticulosis of large intestine without perforation or abscess without bleeding; K62.1 Rectal polyp; K64.9 Unspecified hemorrhoids; I10 Essential (primary) hypertension; Z79.899 Other long term (current) drug therapy
CPT/HCPCS: 88305

== ENCOUNTER → 2021-07-20 | Outpatient (CLI) | payer BC ==
--- NOTE | 2021-07-20 07:49 | Diagnostic Imaging Report ---
PROCEDURE: US Gallbladder. TECHNIQUE: Multiple real-time grayscale images were obtained over the right upper quadrant in various projections. INDICATION: Epigastric pain. FINDINGS: Grayscale imaging of the gallbladder reveals no intraluminal filling defect. There is no gallbladder wall thickening or pericholecystic fluid. No intra or extrahepatic biliary ductal dilatation is identified. Patient body habitus and overlying bowel gas limits evaluation of common bile duct and pancreas. No pancreatic, right renal, abdominal aortic or inferior vena caval abnormality is documented. No ascites was noted. IMPRESSION: Unremarkable right upper quadrant abdominal ultrasound. Dictated by: Dictated on workstation # [id number]
== END ==
LOC: RAD 07:15
PROVIDERS: ATTEND Surgery
DX: R10.13 Epigastric pain (principal)
CPT/HCPCS: 76705

== ENCOUNTER → 2021-08-03 | Outpatient (CLI) | payer BC ==
[~2021-08-03] MED LIST changes: +CATHETER FLUSH 10 ML SYR IVP PRN
--- NOTE | 2021-08-03 12:21 | Diagnostic Imaging Report ---
INDICATION: Epigastric pain. Patient was administered 5.3 mCi technetium 99m Choletec intravenously and imaging of the abdomen was performed. At 30 minutes patient ingested 8 ounces of Ensure and a gallbladder ejection fraction was calculated. There is homogeneous uptake of activity by the liver with prompt excretion of activity into the common duct and gallbladder. There is normal passage of activity into the small bowel. There is activity in the stomach likely from bile reflux. Gallbladder ejection fraction is low at 24%. Normal values are 35% or greater. IMPRESSION: 1. Patent cystic duct and common bile duct. 2. Low gallbladder ejection fraction 24%. 3. Findings consistent with mild gastric bile reflux. Dictated by: Dictated on workstation # [id number]
== END ==
LOC: CARD 10:00
PROVIDERS: ATTEND Surgery
DX: R10.13 Epigastric pain (principal)
CPT/HCPCS: 78227

== ENCOUNTER 2021-08-29 05:36 | Outpatient (CLI) | payer BC ==
[~2021-08-29] VITALS: Ht 180.3 cm; Wt 93.2 kg
[~2021-08-29 05:36] MED LIST changes: -CATHETER FLUSH 10 ML SYR IVP PRN
[2021-08-29] MEDS ORDERED: LISI20TA26 PO (13:41)
[2021-08-31] MEDS ORDERED: DOCU-143 PO (12:01)
[2021-08-31] MEDS ORDERED: ACHD5005 PO (12:01)
== END 2021-08-29 13:50 ==
LOC: PREOP 05:36
PROVIDERS: ATTEND Surgery
DX: Z01.818 Encounter for other preprocedural examination (principal)

== ENCOUNTER 2021-08-31 09:32 | Day surgery (SDC) | payer BC ==
[~2021-08-31] VITALS: Ht 180.3 cm; Wt 93.2 kg
[2021-08-31] VITALS (12 sets, daily range): BP systolic 124–155; BP diastolic 78–97
[2021-08-31] MEDS ORDERED: LACTATED RINGERS 1,000 ML IV PRN (10:00)
[2021-08-31] MEDS ORDERED: ceFAZolin 2 GM IV Premixed 50 ML IV ONE (10:00)
--- NOTE | 2021-08-31 10:12 | Progress Note-Pre Operative ---
Pre-Operative Progress Note H&P Reviewed The H&P was reviewed, patient examined and no changes noted. Date Seen by Provider: Aug 31, 2021 Time Seen by Provider: 10:12 Date H&P Reviewed: Aug 31, 2021 Time H&P Reviewed: 10:12 Pre-Operative Diagnosis: biliary dyskinesia JAMES HERRERA DO Aug 31, 2021 10:12
[2021-08-31] MEDS ORDERED: LIDOCAINE/EPI 2% 1:100,00 (XYLOCAINE) 20 ML VIAL ONE (10:47)
[2021-08-31] MEDS ORDERED: fentaNYL INJ 100 MCG/2 ML AMP ONE (11:16)
[2021-08-31] MEDS ORDERED: proPOfol 200 MG/20 ML (DIPRIVAN) VIAL IV ONE (11:17)
[2021-08-31] MEDS ORDERED: MIDAZOLAM 2 MG/2 ML (VERSED) VIAL ONE (11:17)
[2021-08-31] MEDS ORDERED: ROCURONIUM 10 MG/ML 5 ML SYRINGE IV ONE (11:17)
[2021-08-31] MEDS ORDERED: ONDANSETRON 4 MG/2 ML (SDV) Z0FRAN ONE (11:17)
[2021-08-31] MEDS ORDERED: LIDOCAINE PF 2% 5 ML (XYLOCAINE) VIAL ONE (11:17)
[2021-08-31] MEDS ORDERED: DOCU-143 PO (12:01)
[2021-08-31] MEDS ORDERED: ACHD5005 PO (12:01)
--- NOTE | 2021-08-31 12:03 | Discharge Inst-Simple/Standard ---
Discharge Inst-Standard Discharge Medications New, Converted or Re-Newed RX: Transmitted to Pharmacy Patient Instructions/Follow Up Plan of Care/Instructions/FU: 2-3 weeks Jesse Activity as Tolerated: No Discharge Diet: Regular Diet Other Inst to Patient Follow up Appt: Make appointment for 2 weeks. Instructions: No lifting greater than 10 pounds. No strenuous activity. May shower in 24 hours, no tub bath or soaking. Use incentive spirometer at home as directed. No Smoking Skin/Wound Care: You have special glue over incision, it will fall off on it's own. Symptoms to Report: Appetite Changes, Extremity Discoloration, Numbness/Tingling, Swelling Increased, Bleeding Excessive, Eyesight Changes, Pain Increased, Urine Color Change, Constipation(Persistent), Fever over 101 degree F, Pain/Pressure in chest, Urinating Difficulty, Cough Up/Vomit Blood, Heart Beat Irreg/Pounding, Pain/Pressure in jaw, Vaginal Bleeding Increase, Cramps in feet or legs, Lightheadedness, Pain/Pressure in shoulder, Diarrhea(Persistent), Memory Changes Suddenly, Questions/Concerns, Weight gain consecutive days, Dizziness/Fainting, Nausea/Vomiting, Shortness of Breath, Weight gain over 2 pounds. If eyes or skin turn yellow notify physician. If questions or concerns contact your physician Or seek help at emergency department. JAMES HERRERA DO Aug 31, 2021 12:03
--- NOTE | 2021-08-31 12:05 | Progress Note-Post Operative ---
Post-Operative Progess Note Surgeon (s)/Funeral Director/Embalmer (s) Surgeon JAMES HERRERA DO Funeral Director/Embalmer: Dr. Arnett to assist in retraction dissection and closure. Pre-Operative Diagnosis biliary dyskinesia Post-Operative Diagnosis same Procedure & Operative Findings Date of Procedure 08/31/21 Procedure Performed/Findings PROCEDURE: Laparoscopic cholecystectomy with intraoperative cholangiogram. COMPLICATIONS: None. PROCEDURE: The patient was taken to the operating suite and was prepped and draped in sterile fashion. A surgical pause was performed. Just superior to the umbilicus, a 12 mm incision was made. Dissection was taken down to the fascia, which was then scored and grasped with a Alberto and the abdomen was then entered. A 0 Vicryl suture was placed in a kurkmn-ge-budto fashion and a Chaves trocar was placed and secured. Pneumoperitoneum was achieved. A 5mm trochar place in the subxyphoid and 2 in the right upper quadrant. The gallbladder was then grasped and elevated. Adhesions had to be taken down off of the gallbladder. This was done with cautery and blunt dissection. The cystic duct, and cystic artery were then dissected out. Clip was placed on the distal portion of the cystic duct which was then partially transected. An arrow catheter was inserted into the duct. The cholangiogram was then performed. No filing defects and contrast made its way into the duodenum. Catheter removed. Clips were placed on proximal portion of the cystic duct and then the duct was then transected. Clips were placed along the proximal and distal portion of the cystic artery which was then transected. Hook cautery was used to dissect the gallbladder from the gallbladder fossa achieving hemostasis. The gallbladder was placed in an Endobag and removed through the 12 mm trocar site. The abdomen was then reinspected. Copious amounts of irrigation were used to irrigate the abdomen and there were no signs of active bleeding. Hemostasis had been achieved. The 12 mm fascial defect was then closed with 0 Vicryl suture that had been placed in a [id number] fashion. The abdomen was then desufflated, the trocars were removed. The abdomen was then washed and dried. The skin was then closed using 4-0 Monocryl in a subcuticular fashion. The abdomen was washed and dried and Skin Affix was place over incisions. Patient tolerated the procedure well without any complications and was taken to the recovery room in stable condition. Anesthesia Type general Estimated Blood Loss Estimated blood loss (mL): minimal Specimens/Packing Specimens Removed gallbladder JAMES HERRERA DO Aug 31, 2021 12:05
[2021-08-31] MEDS ORDERED: SEVOFLURANE (ULTANE) 15 ML INHAL SOLN ONE (12:27)
[2021-08-31] MEDS ORDERED: morphine INJ 10 MG/ML 1ML (SYR OR VIAL) ONE (12:50)
--- NOTE | 2021-08-31 12:55 | Anesthesia-General Post-Op ---
General Patient Condition Mental Status/LOC: Same as Preop Cardiovascular: Satisfactory Nausea/Vomiting: Absent Respiratory: Satisfactory Pain: Controlled Complications: Absent Post Op Complications Complications None Follow Up Care/Instructions Patient Instructions None needed. Anesthesia/Patient Condition Patient Condition Patient is doing well, no complaints, stable vital signs, no apparent adverse anesthesia problems. No complications reported per nursing. WHITNEY CRISTINA CRNA Aug 31, 2021 12:55
[2021-08-31] MEDS ORDERED: ONDANSETRON 4 MG/2 ML (SDV) Z0FRAN IVP PRN ×2 (13:00)
[2021-08-31] MEDS ORDERED: fentaNYL INJ 100 MCG/2 ML AMP IVP ONE (13:00)
[2021-08-31] MEDS ORDERED: morphine INJ 10 MG/ML 1ML (SYR OR VIAL) IVP ONE ×2 (13:00)
--- NOTE | 2021-08-31 13:09 | Diagnostic Imaging Report ---
INDICATION: Cholecystectomy. Operative cholangiogram performed in the routine fashion. A total of 48 images were obtained. 10 seconds of fluoroscopy time was used. FINDINGS: The biliary tree is nondilated. There is no filling defect in the biliary tree. Contrast passes to the duodenum without obstruction. A small amount of contrast refluxes into the pancreatic duct. IMPRESSION: Unremarkable operative cholangiogram. Dictated by: Dictated on workstation # [id number]
[2021-08-31] MEDS ORDERED: HYDROcodone/APAP 5 MG/325 MG (LORTAB) TAB PO ONE (13:45)
== END 2021-08-31 14:40 ==
LOC: SDC 09:32
PROVIDERS: ATTEND Surgery
DX: K81.1 Chronic cholecystitis (principal); K82.8 Other specified diseases of gallbladder; K66.0 Peritoneal adhesions (postprocedural) (postinfection)
CPT/HCPCS: 76000; 87081